=== PATIENT | female | born 1975 | race Caucasian/White ===

== ENCOUNTER 2019-04-20 09:08 | Emergency (ER) | payer MEDICAID ==
[~2019-04-20] VITALS: Ht 149.9 cm; Wt 56.7 kg
[2019-04-20 09:11] VITALS: Ht 149.9 cm; Wt 56.7 kg
[2019-04-20 10:25] LABS: microscopic required? YES; urine erythrocyte 1+ (NEGATIVE)
[2019-04-20 10:58] LABS: BASOPHIL % 0.1 % (0-2); PLATELET COUNT 281 x10^3mcL (130-400); RED CELL DISTRIBUTION WIDTH 14.5 % (11.5-14.5)
[2019-04-20 11:04] LABS: CALCIUM 9.3 mg/dL (8.5-10.1); CARBON DIOXIDE 26.4 mmol/L (21-32); CHLORIDE SERUM 106 mmol/L (98-107); CREATININE SERUM 0.7 mg/dL (0.6-1.0); GFR1 > 60 mL/min; GLUCOSE SERUM 131 mg/dL (74-106); POTASSIUM SERUM 3.4 mmol/L (3.5-5.1); SODIUM SERUM 143 mmol/L (136-145)
[2019-04-20 11:08] LABS: ALBUMIN 3.7 g/dL (3.4-5.0); ALKALINE PHOSPHATASE 83 U/L (46-116); ALT/SGPT 25 U/L (14-59); AMYLASE 56 U/L (25-115); AST/SGOT 18 U/L (15-37); BILIRUBIN TOTAL 0.9 mg/dL (0.20-1.00); LIPASE 100 IU/L (73-393)
[2019-04-20 14:33] VITALS: BP 147/60
== END 2019-04-20 14:33 | disposition home or self-care (01) ==
LOC: ED 09:08
PROVIDERS: Specialist
DX: N23 Unspecified renal colic (principal); F17.210 Nicotine dependence, cigarettes, uncomplicated
CPT/HCPCS: 99406; J1885; J7030; Q9967